=== PATIENT | female | born 1955 | race Caucasian/White ===

== ENCOUNTER 2017-08-18 09:38 | Emergency (ER) | payer BC ==
[~2017-08-18] VITALS: Ht 165.1 cm; Wt 105.2 kg
[2017-08-18 10:45] VITALS: BP 133/79
== END 2017-08-18 10:45 | disposition home or self-care (01) ==
LOC: ED 09:38
DX: H66.91 Otitis media, unspecified, right ear (principal); H92.02 Otalgia, left ear; J32.9 Chronic sinusitis, unspecified; I10 Essential (primary) hypertension
CPT/HCPCS: J1885

== ENCOUNTER 2018-08-30 19:40 | Emergency (ER) | payer BC ==
[~2018-08-30] VITALS: Ht 165.1 cm; Wt 112.0 kg
[2018-08-30 19:48] VITALS: Ht 165.1 cm; Wt 112.0 kg
[2018-08-30 21:51] VITALS: BP 130/82
== END 2018-08-30 21:52 | disposition home or self-care (01) ==
LOC: ED 19:40
DX: M54.81 Occipital neuralgia (principal); I10 Essential (primary) hypertension; E78.00 Pure hypercholesterolemia, unspecified; G43.909 Migraine, unspecified, not intractable, without status migrainosus
CPT/HCPCS: J1885; J2765